=== PATIENT | female | born 1975 ===

== ENCOUNTER 2018-02-26 13:40 | Outpatient (CLI) | payer OTHER ==
[~2018-02-26 13:40] MED LIST: ALLEGRA ALLERG180 MG PO; ATARAX25 MG PO; ATARAX50 MG PO; BENADRYL50 MG PO; DICY20TA PO; ERYTHROMYCIN 500 MG PO; FOLIC ACID1 MG; HYDROXYZINE PA100 MG; LEVAQUIN500 MG PO; LEVSIN/SL0.125 MG PO; ZANTAC150 M3
== END 2018-02-26 15:59 | disposition home or self-care (01) ==
LOC: MRI 13:40
DX: M54.6 Pain in thoracic spine (principal); M51.9 Unspecified thoracic, thoracolumbar and lumbosacral intervertebral disc disorder; M54.2 Cervicalgia; M54.5 Low back pain
CPT/HCPCS: 72146

== ENCOUNTER 2024-11-05 15:21 | Outpatient (CLI) | payer OTHER | END 2024-11-05 15:23 | disposition home or self-care (01) | LOC: MAMO-SONO 15:21 | PROVIDERS: ATTEND Obstetrics & Gynecology | DX: N60.01 Solitary cyst of right breast (principal); N60.02 Solitary cyst of left breast; N93.9 Abnormal uterine and vaginal bleeding, unspecified ==

== ENCOUNTER 2025-06-08 14:25 | Outpatient (CLI) | payer OTHER | END 2025-06-08 14:27 | disposition home or self-care (01) | LOC: SONOGRAMA 14:25 | PROVIDERS: ATTEND Obstetrics & Gynecology | DX: R97.1 Elevated cancer antigen 125 [CA 125] (principal); R10.2 Pelvic and perineal pain ==